=== PATIENT | female | born 1985 | race Caucasian/White ===

== ENCOUNTER 2016-09-02 23:04 | Inpatient (IN) | payer OTHER ==
[~2016-09-02] VITALS: Ht 162.6 cm; Wt 81.6 kg
--- NOTE | ~2016-09-02 | PA ---
Unit #: [id number] #: [id number] Patient: QUAN CASAS [id number] [facility] [address] [place] [address] [id number] I MR#: [id number] NAME: QUAN CASAS ROOM: P262 Age: 30 Sex: F Admission Date: 09/03/2016 : 1985 Date of Assessment: Attending Physician: Butch Urena M.D. Admitting Physician: Butch Urena M.D. Primary Care Physician: Primary Care Physician No PSYCHIATRIC ASSESSMENT DATE OF SERVICE 09/03/2016. IDENTIFYING DATA Ms. Casas is a 30-year-old single white female, who is a resident of [place], [place], and was self-referred to the hospital on a voluntary basis. CHIEF COMPLAINT "I'm stressed out and I'm suicidal." HISTORY OF PRESENT ILLNESS Ms. Casas is a 30-year-old white female, who was brought to the hospital, and upon presentation, she stated "I was in the outpatient at the [facility] in March and I have thyroid cancer. Basically, I went to outpatient there because I have a 10-year-old daughter and with the cancer thing, I needed radiation and my mom kicked us out and my daughter and mother has not tried custody of her and she has kept her from me and I have been in and out of court and it has been really hard and it has cost me a lot of money and they are trying to use my mental health and my cancer against me and I just to went to the court the other day over this and they are in the holding back until 01/12/2017, though this has been going on for almost a year, I cannot see her, it has to be supervised. 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 I got kicked out of my home and I'm homeless right now and I got fired from my job because I've been so depressed and I just feel like there is no light at the end of the tunnel for me right now. I don't want to live this life, it hurts so bad. I cannot help to think the world will be better off without me, but I don't want to do that to my daughter." She does report increasing depression, feelings of hopelessness and helplessness, and suicidal ideation, and as such, a recommendation for inpatient level of care for safety and stabilization was made and the patient was transferred to us. SUBSTANCE ABUSE HISTORY The patient reports a history of opioids, cannabis, and benzodiazepine abuse in the past, though currently she reports that she has been smoking cannabis on a regular basis. Unit #: [id number] #: [id number] Patient: QUAN CASAS PAST PSYCHIATRIC HISTORY The patient has had a history of inpatient psychiatric treatment at [facility] along with outpatient treatment at the [facility] and has been diagnosed and treated for mood disorder and has been on a combination of psychotropic medications. PAST MEDICAL HISTORY The patient's medical history is significant for spinal stenosis, irritable bowel disease, and history of thyroid cancer. PERSONAL AND SOCIAL HISTORY A 30-year-old white female, who reports that she is single, unemployed, and essentially homeless and has poor social support system. MENTAL STATUS EXAMINATION Young white female, who was casually dressed with fair personal hygiene, appears to be in no acute distress or discomfort. She was awake and alert on interaction with intact orientation to time, place, and person. Her mood was anxious and depressed with a congruent affect. Her speech was slow and restricted in content. Her thought processes were disorganized with some looseness of associations and suicidal ideations. Her insight and judgment remain significantly impaired. DIAGNOSTIC IMPRESSION Psychiatric: Major depressive disorder, recurrent, moderate, without psychotic features. Medical: Irritable bowel syndrome, spinal stenosis, and history of thyroid cancer. Stressors: Moderate psychosocial stressors. TREATMENT PLAN 1. The patient has presented with a history of mood disorder and has been decompensating and will need inpatient hospitalization for safety and stabilization. We will start her back on her home medications. We will adjust the medications and monitor response. 2. Supportive therapy was provided to the patient. 3. Safe, structured, and nourishing environment will be provided. ESTIMATED LENGTH OF STAY 5 to 7 days. ABILITY TO HELP SELF Limited. WILLINGNESS TO HELP SELF The patient appears to be willing to help self. STRENGTHS 1. Communicative. 2. Cooperative. PROBLEMS 1. Chronic dysphoric symptoms. 2. Poor social support system. DISCHARGE CRITERIA This will be contingent upon the patient's ability to show resolution of her depression and anxiety and her ability to stay safe to herself, particularly after discharge from the hospital. Unit #: [id number] #: [id number] Patient: QUAN CASAS Dictated by... Angel Leigh/dhara TD: 09/03/2016 14:18 JOB #: [id number] PSYCHIATRIC ASSESSMENT Page 1 of 1 X Butch Urena MD X PSYCHIATRIC ASSESSMENT
--- NOTE | ~2016-09-02 | PN ---
Unit #: [id number] #: [id number] Patient: QUAN CASAS [id number] [facility] [address] [place] [address] [id number] I MR#: [id number] NAME: QUAN CASAS ROOM: [facility] Age: 30 Sex: F Admission Date: 09/03/2016 : 1985 Attending Physician: Butch Urena M.D. Admitting Physician: Butch Urena M.D. Primary Care Physician: Primary Care Physician Ifeoma JARRETT NOTES DATE OF SERVICE 09/05/2016 DISCUSSION Ms. Casas is a 30-year-old white female who was seen today. Chart was reviewed and case was discussed with the staff. She remains anxious, withdrawn, depressed, and rather seclusive to herself and has been complaining of feelings of hopelessness and helplessness. Meanwhile, she has been taking the medications and tolerating them fairly well with no reported side effects. MENTAL STATUS EXAMINATION Young white female who is casually dressed with fair personal hygiene, appears to be in no acute distress or discomfort. She was awake and alert on interaction with intact orientation. Her mood is anxious with congruent affect. She denies any suicidal or homicidal ideations. Her insight and judgment remain slightly impaired. TREATMENT PLAN 1. We will continue her on her current medications and treatment protocol. We will monitor her response to the medications and make further adjustments as needed. 2. We will continue to follow up. Dictated by... Butch Urena M.D. IAA/bzg TD: 09/05/2016 14:32 JOB #: [id number] Unit #: [id number] #: [id number] Patient: QUAN CASAS [facility] PROGRESS NOTES Page 1 of 1 X Butch Urena MD PROGRESS NOTE
--- NOTE | ~2016-09-02 | PN ---
Unit #: [id number] #: [id number] Patient: QUAN CASAS [id number] [facility] [address] [place] [address] [id number] I MR#: [id number] NAME: QUAN CASAS ROOM: [facility] Age: 30 Sex: F Admission Date: 09/03/2016 : 1985 Attending Physician: Butch Urena M.D. Admitting Physician: Butch Urena M.D. Primary Care Physician: Primary Care Physician Ifeoma JARRETT NOTES DATE September 08, 2016 DISCUSSION Ms. Casas is a 30-year-old white female, who was seen today and chart was reviewed and the case was discussed with the staff. The patient has been doing fairly well with no agitation or irritability, and has been complaining of persistent depressive symptoms. Meanwhile, she has been taking the medications and tolerating them fairly well. MENTAL STATUS EXAMINATION Young white female, who was casually dressed with fair personal hygiene and appears to be in no acute distress or discomfort. She was awake and alert with intact orientation. Her mood is anxious with a congruent affect. The patient denies any suicidal or homicidal ideations. Her insight and judgment remain slightly impaired. TREATMENT PLAN 1. We will continue her on her current medications and treatment protocol, and will monitor her response to the medications, and make further adjustments as needed. 2. We will continue to followup. Dictated by... Angel Leigh/lyla TD: 09/09/2016 12:27 JOB #: [id number] Unit #: [id number] #: [id number] [facility] PROGRESS NOTES Page 1 of 1 X Butch Urena MD PROGRESS NOTE
--- NOTE | ~2016-09-02 | DS ---
Unit #: [id number] #: [id number] Patient: QUAN CASAS [id number] [facility] [address] [place] [address] [id number] I MR#: [id number] NAME: QUAN CASAS ROOM: P262 Age: 30 Sex: F Admission Date: 09/03/2016 : 1985 Discharge Date: 09/09/2016 Attending Physician: Butch Urena M.D. Primary Care Physician: Primary Care Physician No DISCHARGE SUMMARY IDENTIFYING DATA Ms. Casas is a 30-year-old single white female, who is a resident of [place], [place], and was self-referred to the hospital on a voluntary basis and with chief complaint "I'm stressed out and I'm suicidal." DISCHARGE DIAGNOSES Psychiatric: Major depressive disorder, recurrent, moderate, without psychotic features. Medical: Irritable bowel syndrome, spinal stenosis, history of thyroid cancer. Stressors: Mild psychosocial stressors. HISTORY OF PRESENT ILLNESS Please see initial psychiatric evaluation for details. PAST PSYCHIATRIC HISTORY Please see initial psychiatric evaluation for details. PAST MEDICAL HISTORY Please see initial psychiatric evaluation for details. HOSPITAL COURSE The patient [facility] and was oriented to the hospital environment. Routine p.r.n. medications were initiated, and she was started back on her home medications as on initial presentation, the patient was exhibiting some significant depressive symptoms, though she was polite and pleasant and cooperative with treatment recommendation and was taking the medications regularly and was tolerating them fairly well and was able to show a decent and therapeutic response with improvement in depression and anxiety, and was denying any suicidal ideations, intent, or plan and was wanting to go home and was willing to continue treatment on an outpatient basis and as such, it was decided that she will be discharged home and will continue treatment on an outpatient basis. DISCHARGE MEDICATIONS Seroquel 100 mg at bedtime for depression, Zoloft 100 mg a day for depression. DISCHARGE CONDITION Stable. PROGNOSIS Fair. Unit #: [id number] #: [id number] Patient: QUAN CASAS Dictated by... Angel Leigh/dhara TD: 09/10/2016 23:00 JOB #: [id number] DISCHARGE SUMMARY Page 1 of 1 X Butch Urena MD DISCHARGE SUMMARY
--- NOTE | ~2016-09-02 | PN ---
Unit #: [id number] #: [id number] Patient: QUAN CASAS [id number] [facility] [address] [place] [address] [id number] I MR#: [id number] NAME: QUAN CASAS ROOM: [facility] Age: 30 Sex: F Admission Date: 09/03/2016 : 1985 Attending Physician: Butch Urena M.D. Admitting Physician: Butch Urena M.D. Primary Care Physician: Primary Care Physician Ifeoma JARRETT NOTES DATE September 06, 2016 DISCUSSION Ms. Casas is a 30-year-old white female, who was seen today and chart was reviewed and the case was discussed with the staff. She has been anxious, withdrawn, and rather seclusive to herself. Meanwhile, she has been cooperative with the treatment recommendations and has been taking the medications and tolerating them fairly well with no reported side effects. MENTAL STATUS EXAMINATION Young white female, who was casually dressed with fair personal hygiene and appears to be in no acute distress or discomfort. She was awake and alert with impaired attention and concentration. Her mood was anxious with a congruent affect. She denies any suicidal or homicidal ideations. Her insight and judgment remain slightly impaired. TREATMENT PLAN 1. We will continue her on her current medications and treatment protocol, and will monitor her response to the medications, and make further adjustments as needed. 2. We will continue to followup. Dictated by... Angel Leigh/lyla TD: 09/06/2016 11:08 JOB #: [id number] Unit #: [id number] #: [id number] Patient: QUAN CASAS ELIGIO PROGRESS NOTES Page 1 of 1 X Butch Urena MD PROGRESS NOTE
--- NOTE | ~2016-09-02 | HP ---
Unit #: [id number] #: [id number] Patient: FAVIOLA MONTERROSO [id number] [place] [address] [id number] I MR#: [id number] NAME: FAVIOLA MONTERROSO ROOM: P262 Age: 30 Sex: F Admission Date: 09/03/2016 : 1985 Attending Physician: Butch Urena M.D. Admitting Physician: Butch Urena M.D. Primary Care Physician: Primary Care Physician No HISTORY AND PHYSICAL HISTORY OF PRESENT ILLNESS Faviola is a 30-year-old female admitted on 09/03/[address] [place] [address] for depression and suicidal ideation. PAST MEDICAL HISTORY 1. Obesity. 2. Thyroid cancer diagnosed 2 years ago. She reports she did receive thyroidectomy and radiation. Has not had followup with her physician since then. PAST SURGICAL HISTORY 1. Thyroidectomy. 2. Multiple cervical LEEPs. 3. section x1. 4. Tonsillectomy. 5. Cholecystectomy. ALLERGIES No known drug allergies. SOCIAL HISTORY Smokes 1 pack of cigarettes daily. Denies any alcohol use. Does report occasional use of marijuana. She is currently single and homeless. FAMILY HISTORY Noncontributory. REVIEW OF SYSTEMS CONSTITUTIONAL: No fever or chills. HEENT: Denies any sore throat, ear pain or runny nose. CARDIOVASCULAR: Denies chest pain, irregular heart rhythm or palpitations. CHEST: Denies shortness of breath or cough. No hemoptysis. GASTROINTESTINAL: Denies nausea, vomiting, diarrhea or chronic constipation. ENDOCRINE: Denies history of increased thirst or urination. No recent significant weight loss or gain. GENITOURINARY: Denies dysuria, frequency, or hematuria. SKIN: Denies any rashes. HEMATOLOGIC: Denies history of increased bleeding or bruising. MUSCULOSKELETAL: Denies any hot, swollen joints. No generalized muscle pain. NEUROLOGIC: Denies problems with vision or speech. No frequent, severe headaches. No numbness, tingling or weakness in any extremities. Denies Unit #: [id number] #: [id number] Patient: FAVIOLA MONETRROSO loss of bladder or bowel control. CURRENT MEDICATIONS 1. Sertraline. 2. Doxepin. 3. Gabapentin. 4. Zofran. 5. Synthroid. 6. Liothyronine. PHYSICAL EXAMINATION GENERAL: Alert, oriented, in no acute distress. VITAL SIGNS: Blood pressure 116/74, heart rate 99, temperature 98.7. HEIGHT: 5 feet 4. WEIGHT: 180 pounds. SKIN: Warm and dry without rash or lesion. HEENT: Normocephalic. TMs not viewed. Oral and nasal passages clear. Conjunctivae clear. PERRLA. EOMs intact. NECK: Supple without lymphadenopathy or thyromegaly. HEART: Regular rate and rhythm without murmur. LUNGS: Clear. ABDOMEN: Soft, nontender, without masses or hepatosplenomegaly. : Not done. EXTREMITIES: No evidence of cyanosis, clubbing or edema. Moves all without focal deficit. NEUROLOGICAL: Grossly within normal limits. Cranial Nerves: II: Visual wilkerson are intact. III, IV AND : Extraocular movements are intact. Pupils are equal, round and reactive to light. V: Facial sensation is grossly normal. VII: Facial movements and expression are normal. VIII: Auditory acuity grossly intact. IX, X: Uvula is midline. Phonation is normal. XI: Patient shrugs shoulders and turns head normally. XII: Tongue protrudes in the midline. Sensory and Motor Function: Sensory and motor sensation is grossly normal. Motor: moves all extremities well. Coordination: Gait is normal. Deep Tendon Reflexes: Intact. IMPRESSION 1. Psychiatric admission. 2. Obesity. 3. Thyroid cancer. RECOMMENDATIONS PSYCHIATRIC: Per psychiatrist. MEDICAL: No contraindication to participate in facility's activities. MEDICAL PROGNOSIS Good. MEDICAL CONDITION Stable. Dictated by... Unit #: [id number] #: [id number] Patient: KENDELL MONTERROSOLetty Ramos/isa TD: 09/03/2016 18:13 JOB #: [id number] HISTORY AND PHYSICAL Page 1 of 1 X QUINCY LEARY APRN X HISTORY AND PHYSICAL
--- NOTE | ~2016-09-02 | PN ---
Unit #: [id number] #: [id number] Patient: QUAN CASAS [id number] [facility] [address] [place] [address] [id number] I MR#: [id number] NAME: QUAN CASAS ROOM: [facility] Age: 30 Sex: F Admission Date: 09/03/2016 : 1985 Attending Physician: Butch Urena M.D. Admitting Physician: Butch Urena M.D. Primary Care Physician: Primary Care Physician Ifeoma JARRETT NOTES DATE 09/07/2016 DISCUSSION Ms. Casas is a 30-year-old white female who was seen today and chart was reviewed and case was discussed with the staff. She has been anxious, withdrawn though has not shown any agitation, irritability or behavioral problems and has been cooperative with treatment recommendations and has been taking medications and tolerating them fairly well with no reported side effects. MENTAL STATUS EXAMINATION Young white female who was casually dressed with fair personal hygiene and appears to be in no acute distress or discomfort. She was awake and alert on interaction with intact orientation. Her mood was anxious with congruent affect. She denies any suicidal or homicidal ideation. Her insight and judgement remains slightly impaired. TREATMENT PLAN 1. Will continue on current medications and treatment protocol. Will monitor her response to the medications and make further adjustments as needed. 2. Will continue to follow up. Dictated by... Butch Urena M.D. IAA/isa TD: 09/07/2016 23:21 JOB #: [id number] Unit #: [id number] #: [id number] Patient: QUAN CASAS [facility] PROGRESS NOTES Page 1 of 1 X Butch Urena MD PROGRESS NOTE
[2016-09-03 09:44] LABS: BASOPHIL# 0.1 X10e3 (0-0.3); BASOPHIL% 0.6 % (0-2.5); EOSINOPHIL# 0.2 X10e3 (0-0.7); EOSINOPHIL% 1.2 % (0.0-7.0); HEMATOCRIT 39.5 % (35.0-45.0); HEMOGLOBIN 13.6 gm/dL (12.0-16.0); LYMPHOCYTE# 5.6 X10e3 (1.0-3.5); LYMPHOCYTE% 44.4 % (17.0-45.0); MEAN CELL VOLUME 91.9 FL (83-96); MEAN CORPUSCULAR HEMOGLOBIN 31.6 PG (28-34); MEAN CORPUSCULAR HGB CONC 34.4 g/dL (30-36); MEAN PLATELET VOLUME 8.5 FL (6.5-11.5); MONOCYTE# 0.8 X10e3 (0-1.0); MONOCYTE% 6.7 % (3.0-12.0); NEUTROPHIL# 5.9 X10e3 (1.5-7.1); NEUTROPHIL% 47.1 % (40-75); PLATELET COUNT 251 X10e3 (140-420); RED BLOOD COUNT 4.29 X10e (3.90-5.30); RED CELL DISTRIBUTION WIDTH 13.3 % (11.0-15.5); WHITE BLOOD COUNT 12.6 X10e3 (4.0-10.5)
[2016-09-03 09:51] LABS: DIFF IND NO
[2016-09-03 09:59] LABS: URINE APPEARANCE CLEAR; URINE BILIRUBIN NEG (NEG); URINE BLOOD NEG (NEG); URINE COLOR YELLOW; URINE GLUCOSE NEG (NEG); URINE KETONE NEG (NEG); URINE LEUKOCYTE ESTERASE NEG (NEG); URINE NITRATE NEG (NEG); URINE PROTEIN NEG (NEG); URINE SPECIFIC GRAVITY 1.015 (1.003-1.035); URINE UROBILINOGEN 0.2 MG/DL (NEG)
[2016-09-03 10:14] LABS: ALBUMIN SERUM 3.9 g/dL (3.5-5.0); BILIRUBIN,TOTAL 0.3 mg/dL (0.2-2.0); BUN/CREATININE RATIO 21.42; CALCIUM SERUM 9.5 mg/dL (8.4-10.2); CREATININE SERUM 0.7 mg/dL (0.6-1.4); GLOM FILT RATE Estimated 116.3 mL/min (>60); POTASSIUM 4.3 mmol/L (3.5-5.1)
[2016-09-03 10:36] LABS: AMPHETAMINE NEG (NEG); BARBITURATES NEG (NEG); BENZODIAZEPINES POS (NEG); COCAINE NEG (NEG); MARIJUANA POS (NEG); OPIATES NEG (NEG); TRICYCLIC ANTIDEPRESSANTS NEG (NEG); U METHADONE NEG (NEG)
== END 2016-09-09 11:15 | disposition home or self-care (01) | DRG 885 ==
LOC: P2L 09-03 01:00
PROVIDERS: Psychiatry & Neurology Psychiatry
DX: F33.1 Major depressive disorder, recurrent, moderate (principal); E66.9 Obesity, unspecified; F17.210 Nicotine dependence, cigarettes, uncomplicated; K58.9 Irritable bowel syndrome, unspecified; Z85.850 Personal history of malignant neoplasm of thyroid
CPT/HCPCS: 80053; 80307; 81003; 84703; 85025